=== PATIENT | male | born 1940 | race Hispanic/Latino ===

== ENCOUNTER 2017-08-22 08:01 | Observation (INO) | payer MEDICARE ==
[2017-08-22 08:13] VITALS: RESP 18; O2SAT 100; BMI 26.3
--- NOTE | 2017-08-22 09:19 | ED PDOC ---
HPI: Male Pain Time Seen by Provider: 08/22/17 08:44 Chief Complaint (Nursing): Male Genitourinary Chief Complaint (Provider): Hematuria History Per: Patient History/Exam Limitations: no limitations Additional Complaint(s): Pt presents with c/o decreased urination and hematuria, 3 weeks s/p L ureteral stent placement (Long). Had stent removed 1 week ago with continued hematuria with clots. Denies fever, nausea, vomiting, abdominal pain. Past Medical History Reviewed: Nursing Documentation, Vital Signs Vital Signs: Last Vital Signs Temp 97.4 F L 08/22/17 08:27 Pulse 69 08/22/17 08:51 Resp 18 08/22/17 08:27 BP 106/56 L 08/22/17 08:27 Pulse Ox 100 08/22/17 08:27 - Medical History PMH: Kidney Stones Other PMH: Arrhythmia - Surgical History Other surgeries: Ureteral stent - Family History Family History: States: Unknown Family Hx - Social History Current smoker - smoking cessation education provided: No Alcohol: Social - Home Medications Home Medications: Ambulatory Orders Medication Instructions Recorded Aspirin [Aspirin Chewable] 81 mg PO DAILY 08/22/17 Clorazepate Dipotassium 3.75 mg PO DAILY 08/22/17 [Tranxene-T] Finasteride [Proscar] 5 mg PO DAILY 08/22/17 Pindolol [Pindolol] 5 mg PO DAILY 08/22/17 Silodosin [Rapaflo] 8 mg PO DAILY 08/22/17 - Allergies Allergies/Adverse Reactions: Allergies Allergy/AdvReac Type Severity Reaction Status Date / Time No Known Allergies Allergy Verified 08/22/17 09:16 Review of Systems Constitutional: Negative for: Fever, Chills Cardiovascular: Negative for: Chest Pain, Palpitations Respiratory: Negative for: Cough, Shortness of Breath Gastrointestinal: Negative for: Nausea, Vomiting, Abdominal Pain, Diarrhea Genitourinary Male: Positive for: Hematuria. Negative for: Dysuria Skin: Negative for: Rash, Lesions Neurological: Negative for: Headache Physical Exam - Reviewed Nursing Documentation Reviewed: Yes Vital Signs Reviewed: Yes - Physical Exam Appears: Positive for: Well, No Acute Distress Skin: Positive for: Pallor Eye Exam: Positive for: Normal appearance, EOMI, PERRL Cardiovascular/Chest: Positive for: Irregularly Irregular Respiratory: Positive for: Normal Breath Sounds. Negative for: Rales, Rhonchi, Wheezing Gastrointestinal/Abdominal: Positive for: Normal Exam, Bowel Sounds, Soft. 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 - labs - EKG - CXR Disposition - Clinical Impression Clinical Impression: Hematuria - Patient ED Disposition Is Patient to be Admitted: Yes - Disposition Disposition Time: 10:30 Condition: STABLE - Pt Status Changed To: Hospital Disposition Of: Observation - POA Present On Arrival: None
[2017-08-22 09:46] LABS: BASO % 0.4 % (0.0-2.0); EOS # 0.1 K/uL (0.0-0.7); HEMOGLOBIN 8.4 g/dL (12.0-18.0); LYMPH # 1.4 K/uL (1.0-4.3); LYMPH % 15.9 % (20.0-40.0); MEAN CELL VOLUME 93.3 fl (80.0-94.0); MEAN CORPUSCULAR HEMOGLOBIN 31.5 pg (27.0-31.0); MEAN CORPUSCULAR HGB CONC 33.7 g/dL (33.0-37.0); MEAN PLATELET VOLUME 8.6 fl (7.2-11.7); MONO # 0.8 K/uL (0.0-0.8); MONO % 9.2 % (0.0-10.0); NEUT # 6.5 K/uL (1.8-7.0); NEUT % 73.5 % (50.0-75.0); NRBC % 0.1 % (0.0-0.0); RBC 2.65 Mil/uL (4.40-5.90); RED CELL DISTRIBUTION WIDTH 13.7 % (11.5-14.5); WHITE BLOOD COUNT 8.9 K/uL (4.8-10.8)
[2017-08-22 09:57] LABS: ALB/GLOB RATIO 1.3 (1.0-2.1); ALBUMIN 3.1 g/dL (3.5-5.0); ALT/SGPT 39 U/L (21-72); AST/SGOT 24 U/L (17-59); BLOOD UREA NITROGEN 24 mg/dl (9-20); CALCIUM 8.2 mg/dL (8.4-10.2); GFR AFRICAN-AMERICAN > 60; GFR NON-AFRICAN AMERICAN > 60
[2017-08-22 10:15] LABS: PROTHROMBIN TIME 12.6 Seconds (9.8-13.1)
[2017-08-22 10:16] LABS: INR 1.1 (0.9-1.2); PARTIAL THROMBOPLASTIN TIME 22.2 Seconds (25.6-37.1)
[2017-08-22 10:40] LABS: SQUAMOUS EPITHIAL 1 /hpf (0-5); URINE BACTERIA OCC (<OCC); URINE BILIRUBIN NEGATIVE (NEGATIVE); URINE BLOOD LARGE (NEGATIVE); URINE CLARITY CLOUDY (Clear); URINE COLOR YELLOW (YELLOW); URINE GLUCOSE (UA) NEG (Normal); URINE PROTEIN 30 mg/dL (NEGATIVE); URINE UROBILINOGEN 0.2-1.0 mg/dL (0.2-1.0)
[2017-08-22 10:42] LABS: URINE LEUKOCYTE ESTERASE SMALL Leu/uL (Negative)
[2017-08-22] MEDS ORDERED: Propofol 10 mg/ml Inj (20 ML) ONE (11:38)
[2017-08-22] MEDS ORDERED: Midazolam 2 MG/2 ML VIAL ONE (11:38)
--- NOTE | 2017-08-22 11:38 | RAD ---
HISTORY: Medical clearance COMPARISON: No prior. TECHNIQUE: Chest PA and lateral FINDINGS: LUNGS: No active pulmonary disease. PLEURA: No significant pleural effusion identified. No pneumothorax apparent. CARDIOVASCULAR: No radiographic findings to suggest acute or significant cardiovascular disease. OSSEOUS STRUCTURES: No significant abnormalities. VISUALIZED UPPER ABDOMEN: Normal. OTHER FINDINGS: None. IMPRESSION: No active disease.
[2017-08-22] MEDS ORDERED: cefTRIAXone (Rocephin) 1 gm Inj IVPB ONE (11:50)
[2017-08-22] MEDS ORDERED: ePHEDrine 50 mg/ml Inj ONE (11:55)
[2017-08-22] MEDS ORDERED: Lactated Ringer's 1,000 ML IV ONE ×2 (12:25→13:00)
[2017-08-22 14:51] VITALS: BP 122/71; PULSE 72; TEMP 98
--- NOTE | 2017-08-24 10:21 | CARD ---
APPROVED REPORT EKG Measurement Heart [id number] MS 156P [id number] <Conclusion> Sinus rhythm with marked sinus arrhythmia with premature atrial complexes Otherwise normal ECG
--- NOTE | 2017-09-13 21:07 | OP ---
PROCEDURE DATE: 08/22/2017 PREOPERATIVE DIAGNOSIS: Gross hematuria. POSTOPERATIVE DIAGNOSIS: Gross hematuria. PROCEDURE PERFORMED: Cystoscopy with fulguration. DESCRIPTION OF PROCEDURE: The patient was placed on the operating room table in dorsal lithotomy position. The area of the groin was draped and prepped in the sterile manner. Using a #21 cystoscope, I entered into the urethra atraumatically at the level of the prostatic urethra appeared to a false passage through which, there was significant amount of bleeding emanating from that area. I was able to cauterize that area with Bugbee sufficiently enough to stop the active bleeding. I then proceeded to look in the bladder, he does have a very large trilobar occlusive prostate. The bladder wall itself shows evidence of moderate trabeculation throughout the bladder suggestive of chronic symptomatic prostate. There was no other lesions within the bladder. No active bleeding in the bladder. The patient has a history of renal stone disease, but the ureteral was clear from both ureters at the time of this observation. I went back to the area that I cauterized, it appeared to be dry, I then removed the cystoscope, and left no instrumentation in the bladder. The patient then was taken from the operating room in good condition. Benito Brice MD
== END 2017-08-22 16:20 | disposition home or self-care (01) ==
LOC: H.ERHOLD 08:01 → H.ER 08:01 → H.ERHOLD 10:30 → H.ER 10:58
PROVIDERS: ADMIT Urology; ATTEND Urology
DX: R31.0 Gross hematuria (principal); Z87.442 Personal history of urinary calculi; N32.89 Other specified disorders of bladder
CPT/HCPCS: 52214; 71046; 80053; 81003; 85025; 85610; 85730; 86850; 86900; 87086; 93005; 99283; J0696; J2001; J2250; J2270; J2704; J3010; J7120

== ENCOUNTER 2017-12-26 06:42 | Day surgery (SDC) | payer MEDICARE ==
[2017-12-26] MEDS ORDERED: Lactated Ringer's 1,000 ML IV ONE (07:35)
[2017-12-26] MEDS ORDERED: cefTRIAXone (Rocephin) 1 gm Inj ONE (07:59)
[2017-12-26] MEDS ORDERED: Lidocaine 2% Jelly (Uro-Jet) ONE (07:59)
[2017-12-26] MEDS ORDERED: Propofol 10 mg/ml Inj (20 ML) ONE (08:09)
[2017-12-26] MEDS ORDERED: Sevoflurane - Inhalation Anesthetic Liq (250 ml) ONE (08:09)
[2017-12-26] MEDS ORDERED: cefTRIAXone (Rocephin) 1 gm Inj IM ONE (08:20)
[2017-12-26] MEDS ORDERED: Lidocaine 2% Jelly (Uro-Jet) TOP ONE (08:28)
[2017-12-26] MEDS ORDERED: ePHEDrine 50 mg/ml Inj ONE (08:31)
[2017-12-26] MEDS ORDERED: HYDROmorphone 0.5 mg/0.5 ml ISec IVP PRN (09:54)
[2017-12-26 11:48] VITALS: RESP 18
[2017-12-26 12:56] VITALS: BP 118/67; PULSE 60; TEMP 97.5; O2SAT 97
--- NOTE | 2017-12-26 20:09 | OP ---
Copied To: Beniot Brice MD Attending MD: Benito Brice MD PROCEDURE DATE: 12/26/2017 PREOPERATIVE DIAGNOSIS: Benign prostatic hypertrophy. POSTOPERATIVE DIAGNOSIS: Benign prostatic hypertrophy. PROCEDURE PERFORMED: GreenLight laser of the prostate. DESCRIPTION OF PROCEDURE: The patient was placed on the operating room table in a dorsal lithotomy position, given general anesthesia. The area of the groin was draped and prepped at this time. Under direct vision, I placed a laser scope into the bladder, identified the adenoma using the laser starting at 80 syed, I demarcated the distal portion of the resection. Then began to resect the middle lobe followed by the lateral lobes. I used the maximum of approximately 280,000 joules of energy with the maximum power of 160 syed to reduce the adenoma. Once this was done, there was a clear vision from an intact verumontanum into the bladder. Estimated blood loss mL. The patient then had a #22 three-way Alvarez catheter inserted and taken from the operating room in good condition. Benito Brice MD
== END 2017-12-26 13:06 | disposition home or self-care (01) ==
LOC: H.OPSURG 06:42
PROVIDERS: ATTEND Urology
DX: N40.0 Benign prostatic hyperplasia without lower urinary tract symptoms (principal); E78.5 Hyperlipidemia, unspecified; I10 Essential (primary) hypertension; F32.9 Major depressive disorder, single episode, unspecified
CPT/HCPCS: 52648; J0696; J2001; J2405; J2704; J3010; J7120